=== PATIENT | male | born 1955 ===

== ENCOUNTER 2024-01-24 17:47 | Inpatient (IN) | payer MEDICARE, OTHER ==
[~2024-01-24] VITALS: Ht 182.9 cm; Wt 74.4 kg
[2024-01-24] MEDS ORDERED: SACU1TAB4 PO (18:05)
[2024-01-24] MEDS ORDERED: FURO-151 PO (18:05)
[2024-01-24] MEDS ORDERED: DIGO125T PO (18:05)
[2024-01-24] MEDS ORDERED: VERQUVO PO (18:05)
[2024-01-24] MEDS ORDERED: RIVA10TA PO (18:05)
[2024-01-24] MEDS ORDERED: OMEP40CA21 PO (18:05)
[2024-01-24] MEDS ORDERED: CARV25TA2 PO (18:05)
[2024-01-24] MEDS ORDERED: MAG HYDROX/AL HYDROX/SIMETH 30 ML LIQUID UDC PO PRN (21:00)
[2024-01-24] MEDS ORDERED: MAGNESIUM HYDROXIDE 30 ML LIQUID UDC PO PRN (21:00)
[2024-01-24] MEDS: BLOOD SUGAR DIAGNOSTIC 1 EACH STRIP VI ONE (21:30)
[2024-01-24] MEDS: ACETAMINOPHEN 325 MG TABLET PO PRN (22:42)
[2024-01-24 23:04] VITALS: BP 140/73; TEMP 99; O2SAT 96
[2024-01-25 07:36] LABS: CREATININE 1.2 mg/dL (0.6-1.3)
[2024-01-25 08:00] VITALS: BP 129/88; TEMP 97.7; O2SAT 97
[2024-01-25] MEDS: OLANZAPINE 2.5 MG TABLET PO SCH (09:00)
[2024-01-25] MEDS: DIVALPROEX SPRINKLE 125 MG CAP.SPRINK PO SCH (09:00)
[2024-01-25] MEDS: MULTIVITAMINS,THERAPEUTIC TABLET PO SCH (10:11)
[2024-01-25] MEDS: THIAMINE HCL 100 MG TABLET PO SCH (10:11)
[2024-01-25] MEDS ORDERED: HOME MED MISCELLANEOUS XX SCH ×2 (12:15→14:15)
[2024-01-25] MEDS: CARVEDILOL 25 MG TABLET PO SCH (17:30)
[2024-01-25] MEDS: SACUBITRIL/VALSARTAN 24 MG-26 TABLET PO SCH (17:43)
[2024-01-25 20:00] VITALS: BP 100/80; TEMP 97.8; O2SAT 93
[2024-01-26] MEDS: PANTOPRAZOLE SODIUM 40 MG TABLET.DR PO SCH (06:49)
[2024-01-26 07:41] LABS: BASOPHILS # (AUTO) 0.1 K/UL (0.0-0.2); BASOPHILS % (AUTO) 1.1 % (0.0-2.0); EOSINOPHILS # (AUTO) 0.1 K/uL (0.0-0.7); EOSINOPHILS % (AUTO) 2.5 % (0.0-7.0); HEMATOCRIT 44.6 % (36.7-47.1); HEMOGLOBIN 14.3 g/dL (12.5-16.3); LYMPHOCYTES # (AUTO) 1.1 K/uL (0.8-4.8); LYMPHOCYTES % (AUTO) 23.2 % (20.5-51.5); MEAN CORPUSCULAR HEMOGLOBIN 27.2 uug (23.8-33.4); MEAN CORPUSCULAR HGB CONC 32 g/dL (32.5-36.3); MEAN CORPUSCULAR VOLUME 84.4 fL (73.0-96.2); MONOCYTES # (AUTO) 0.6 K/uL (0.1-1.30); MONOCYTES % (AUTO) 11.8 % (0.0-11.0); NEUTROPHILS % (AUTO) 61.4 % (38.5-71.5); PLATELET COUNT (AUTO) 143 K/uL (152-348); RED BLOOD CELL COUNT(AUTO) 5.28 MIL/uL (4.06-5.63); RED CELL DISTRIBUTION WIDTH 17.1 % (12.1-16.2); WHITE BLOOD COUNT (AUTO) 4.9 K/uL (3.6-10.2)
[2024-01-26 07:49] LABS: DIFFERENTIAL COMMENT 1
[2024-01-26 08:07] LABS: CALCIUM 8.7 mg/dL (8.5-10.1); CREATININE 1.2 mg/dL (0.6-1.3); POTASSIUM 4.2 mmol/L (3.5-5.1)
[2024-01-26 08:21] VITALS: BP 130/93; TEMP 98.3; O2SAT 98
[2024-01-26] MEDS: DIGOXIN 125 MCG TABLET PO SCH (09:16)
[2024-01-26] MEDS: FUROSEMIDE 40 MG TABLET PO SCH (09:17)
[2024-01-26 16:19] VITALS: BP 94/61; TEMP 98.1; O2SAT 98
[2024-01-26] MEDS: SACUBITRIL/VALSARTAN 24 MG-26 TABLET PO SCH (16:47)
[2024-01-26] MEDS: RIVAROXABAN 10 MG TABLET PO SCH (16:48)
[2024-01-26] MEDS: LORAZEPAM 1 MG TABLET PO PRN (20:58)
[2024-01-26 21:08] VITALS: BP 94/57; TEMP 98.2; O2SAT 98
[2024-01-27 08:11] VITALS: BP 94/60; TEMP 98.4; O2SAT 98
[2024-01-27 16:28] VITALS: BP 111/79; TEMP 98.3; O2SAT 98
[2024-01-27 20:13] VITALS: BP 116/60; TEMP 98.1; O2SAT 96
[2024-01-27] MEDS: ZOLPIDEM 5 MG TABLET PO PRN (23:59)
[2024-01-28 09:32] VITALS: BP 109/83; TEMP 97.7; O2SAT 99
[2024-01-28] MEDS ORDERED: CARV12.52 PO (09:34)
[2024-01-28 16:44] VITALS: BP 144/67; TEMP 98; O2SAT 99
[2024-01-28 20:05] VITALS: BP 136/78; TEMP 98.1; O2SAT 98
[2024-01-29 08:00] VITALS: BP 97/62; TEMP 98.2; O2SAT 95
[2024-01-29] MEDS: OLANZAPINE 2.5 MG TABLET PO SCH (08:33)
[2024-01-29] MEDS: DIVALPROEX SPRINKLE 125 MG CAP.SPRINK PO SCH (08:35)
[2024-01-29 16:35] VITALS: BP 106/74; TEMP 98; O2SAT 98
[2024-01-29 20:07] VITALS: BP 100/60; TEMP 98.1; O2SAT 95
[2024-01-30 08:00] VITALS: BP 114/77; TEMP 97.3; O2SAT 97
[2024-01-30 16:12] VITALS: BP 123/63; TEMP 98; O2SAT 97
[2024-01-30 20:00] VITALS: BP 93/54; TEMP 97.7; O2SAT 96
[2024-01-31 07:51] VITALS: BP 98/61; TEMP 97.6; O2SAT 98
[2024-01-31 16:04] VITALS: BP 97/65; TEMP 98.6; O2SAT 97
[2024-01-31 20:00] VITALS: BP 91/57; TEMP 97.5; O2SAT 97
[2024-02-01] MEDS: GUAIFENESIN/DEXTROMETHORPHAN 5 ML UDC PO PRN (05:06)
[2024-02-01] MEDS: FUROSEMIDE 40 MG TABLET PO ONE (06:47)
[2024-02-01 07:59] VITALS: BP 100/78; TEMP 97.6; O2SAT 94
[2024-02-01 09:01] VITALS: BP 100/78
== END 2024-02-01 16:00 | disposition home or self-care (01) | DRG 885 ==
LOC: ER 18:37 → GPS 20:38
PROVIDERS: ADMIT Psychiatry & Neurology Psychiatry; ATTEND Nurse Practitioner Acute Care
DX: F31.5 Bipolar disorder, current episode depressed, severe, with psychotic features (principal); I11.0 Hypertensive heart disease with heart failure; F15.151 Other stimulant abuse with stimulant-induced psychotic disorder with hallucinations; I50.43 Acute on chronic combined systolic (congestive) and diastolic (congestive) heart failure; I48.20 Chronic atrial fibrillation, unspecified; I42.9 Cardiomyopathy, unspecified; F10.10 Alcohol abuse, uncomplicated; K21.9 Gastro-esophageal reflux disease without esophagitis; Z79.01 Long term (current) use of anticoagulants; Z79.899 Other long term (current) drug therapy; Z95.810 Presence of automatic (implantable) cardiac defibrillator; Z95.1 Presence of aortocoronary bypass graft; I25.10 Atherosclerotic heart disease of native coronary artery without angina pectoris; E78.5 Hyperlipidemia, unspecified; R53.1 Weakness
CPT/HCPCS: 36415; 71045; 80164; 85025; 93005; 93307